=== PATIENT | male | born 1990 | race Caucasian/White ===

== ENCOUNTER 2019-02-14 20:17 | Emergency (ER) | payer BC ==
--- NOTE | 2019-02-14 20:45 | EDM.PDOC ---
ED HPI GENERAL MEDICAL PROBLEM - General Chief Complaint: Back Pain or Injury Stated Complaint: BACK PAIN Time Seen by Provider: 02/14/19 20:44 - History of Present Illness INITIAL COMMENTS - FREE TEXT/NARRATIVE: 28-year-old male presents emergency room with low back pain. Patients an ongoing issue with this and is having a hard time getting some [facility]. He's had a several year history of low back pain with muscle tightness going down to the backs of his knees. He recently got treated with tramadol and Flexeril with mediocre success and now his other medications. The patient denies any loss of bowel or bladder control at times he has pain down into his feet but it is unclear to me if this is a radicular situation Treatments SUPPORT SPECIALIST: Reports: Other (see below) Other Treatments SUPPORT SPECIALIST: tramadol and flexirle about 1530 today Right Lower Back Pain Score (Numeric/FACES): 10 - Related Data Allergies Allergy/AdvReac Type Severity Reaction Status Date / Time No Known Allergies Allergy Verified 02/10/19 17:44 CDT Home Meds: Home Meds Cyclobenzaprine [Flexeril] 10 mg PO Q8H PRN 02/14/19 [History] Cyclobenzaprine [Flexeril] 10 mg PO TID #60 tab 02/14/19 [Rx] Cyclobenzaprine [Flexeril] 20 mg PO Q12H #60 tab 02/14/19 [Rx] Naproxen [Naprosyn] 500 mg PO Q12HR #60 tab 02/14/19 [Rx] traMADol [Ultram] 50 mg PO Q6H PRN 02/14/19 [History] Past Medical History Musculoskeletal History: Reports: Back Pain, Chronic - Past Surgical History Musculoskeletal Surgical History: Reports: None Social & Family History - Family History Family Medical History: Noncontributory - Caffeine Use Caffeine Use: Reports: Coffee, Energy Drinks, Soda ED ROS GENERAL - Review of Systems Review Of Systems: See Below Constitutional: Reports: No Symptoms HEENT: Reports: No Symptoms Respiratory: Reports: No Symptoms Cardiovascular: Reports: No Symptoms Endocrine: Reports: No Symptoms GI/Abdominal: Reports: No Symptoms ED EXAM,LOWER BACK PAIN/INJURY - Physical Exam Exam: See Below Exam Limited By: No Limitations General Appearance: Alert Head: Atraumatic, Normocephalic Neck: Normal Inspection, Supple, Non-Tender, Full Range of Motion Respiratory/Chest: No Respiratory Distress, Lungs Clear, Normal Breath Sounds Cardiovascular: Regular Rate, Rhythm, No Edema, No Murmur GI/Abdominal: Normal Bowel Sounds, Soft, Non-Tender Back Exam: CVA Tenderness (L), CVA Tenderness (R), Other (He has no vertebral tenderness he has bilateral paraspinous muscle spasm from the lower thoracic on down. Straight leg raises are interfered only with posterior leg pain above the level of the knee and into the buttocks. I cannot elicit any pain below his knees or any classic radicular symptoms) DTR - Lower Extremities: 0: Ankle (R), 2+: Knee (R), Knee (L), Ankle (L) Psychiatric: Normal Affect, Normal Mood Skin Exam: Warm, Dry, Intact Lymphatic: No Adenopathy Course - Vital Signs Last Recorded V/S: Last Vital Signs Temp 36.3 C 02/14/19 20:44 Pulse 63 02/14/19 20:44 Resp 20 02/14/19 20:44 BP 136/90 02/14/19 20:44 Pulse Ox 100 02/14/19 20:44 - Re-Assessments/Exams Free Text/Narrative Re-Assessment/Exam: 02/14/19 21:13 After examining thinks patient's any benefit mostly from physical therapy to retrain his back and rehabilitate his back medical management at this point will include Naprosyn 500 mg twice a day with the addition of famotidine for gastric protective effect the patient will be started on Flexeril 10 mg 3 times a day for 4-7 days and then decrease to 1 at night on an ongoing basis he is to be started in physical therapy. Explained to the patient no uncertain terms activity is a anna part for his rehabilitation at this point he needs to use a lot of caution with doing lifting especially lifting twisting maneuvers walking is encouraged. Departure - Departure Time of Disposition: 21:14 Disposition: Home, Self-Care 01 Clinical Impression: Lumbosacral strain - Discharge Information Prescriptions: Naproxen [Naprosyn] 500 mg PO Q12HR #60 tab Cyclobenzaprine [Flexeril] 20 mg PO Q12H #60 tab Cyclobenzaprine [Flexeril] 10 mg PO TID #60 tab Referrals: PCP,None [Primary Care Provider] - Forms: ED Department Discharge Additional Instructions: Return to the emergency room with any questions problems worsening symptoms. Discontinued the tramadol. Get established with physical therapy. Establish with a local doctor.
== END 2019-02-14 21:28 | disposition home or self-care (01) ==
LOC: JD.ED 20:17
DX: S39.012A Strain of muscle, fascia and tendon of lower back, initial encounter (principal); X58.XXXA Exposure to other specified factors, initial encounter
CPT/HCPCS: 99283